=== PATIENT | female | born 1955 | race Caucasian/White ===

== ENCOUNTER → 2019-10-20 | Outpatient (CLI) | payer MEDICARE ==
[2019-10-20 10:12] LABS: Basophils # (auto) 0.1 10 ^3/uL (0-0.2); Basophils % (auto) 1.4 % (0.0-2.0); Eosinophils # (auto) 0.2 10 ^3/uL (0-0.8); Eosinophils % (auto) 2.8 % (0.0-7.0); Hematocrit 41.2 % (36.0-46.0); Hemoglobin 13.5 g/dL (12.2-16.2); Lymphocytes # (auto) 2.1 10 ^3/uL (0.4-5.4); Lymphocytes % (auto) 36.3 % (10.0-50.0); Mean Corpuscular Hemoglobin 29.8 pg (28.0-32.0); Mean Corpuscular Hgb Conc. 32.9 g/dL (32.0-36.0); Mean Corpuscular Volume 90.6 fL (80.0-100.0); Monocytes # (auto) 0.5 10 ^3/uL (0-1.3); Neutrophils % (auto) 51.5 % (37.0-80.0); Nucleated Red Blood Cells % 0.1 %; Platelet Count (auto) 305 10^3/uL (140-450); Red Blood Cells 4.55 10^6/uL (4.0-5.20); Red Cell Distribution Width 13.5 % (11.8-14.3); White Blood Cell 5.9 10^3/uL (4.4-10.8)
[2019-10-20 10:40] LABS: Free T4 (Free Thyroxine) 0.88 ng/dL (0.89-1.76)
[2019-10-20 10:42] LABS: Folate (Folic Acid) 15.35 ng/mL (5.38-24)
[2019-10-20 14:20] LABS: Albumin 3.8 g/dL (3.4-5.0); Calcium 9.3 mg/dL (8.5-10.1); Potassium 3.9 mmol/L (3.5-5.1)
[2019-10-20 14:24] LABS: BUN/Creatinine Ratio 18.9; Bilirubin, Total 0.5 mg/dL (0.2-1.0); Phosphorus 3.2 mg/dL (2.5-4.90); Total Protein 7.2 g/dL (6.4-8.2)
[2019-10-21 16:03] LABS: Urine Bacteria FEW /hpf (None Seen); Urine Blood Negative /uL (Negative); Urine Mucus FEW (None Seen); Urine Specific Gravity 1.012 (1.001-1.035); Urine WBC 1 /hpf (0 - 5)
== END | disposition home or self-care (01) ==
LOC: LAB 09:34
PROVIDERS: ATTEND Internal Medicine
DX: E03.9 Hypothyroidism, unspecified (principal); E11.22 Type 2 diabetes mellitus with diabetic chronic kidney disease; N18.9 Chronic kidney disease, unspecified; M85.80 Other specified disorders of bone density and structure, unspecified site
CPT/HCPCS: 36415; 80053; 80061; 80069; 81001; 82043; 82306; 82607; 82746; 83036; 84439; 84443; 85025; 86200

== ENCOUNTER 2024-05-18 19:27 | Emergency (ER) | payer MEDICARE, OTHER ==
[~2024-05-18] VITALS: Ht 167.6 cm; Wt 79.5 kg
[2024-05-18 19:32] VITALS: BP 114/72; RESP 16; O2SAT 96
[2024-05-18 19:44] VITALS: PULSE 60
--- NOTE | 2024-05-18 20:29 | ED.PDOC ---
History of Present Illness HPI Comments 69 y/o F, with a Hx of angina, HLD, and hypothyroidism, is BIBA for c/o chest pain, today. Per EMS report, patient endorses on sudden and unprovoked onset of non-radiating, sternal chest discomfort, this evening, at around 1800. Prior to EMS arrival on scene, patient was commented to have taken 2x doses of her prescription NTG at 0645 and 0700, with pain subsiding, immediately, afterwards. At time of assessment, patient states on having similar pain in the past with her Hx of angina and last episode taking place "awhile ago." She refutes any recent injuries, strenuous activities, or stressors along with reporting any additional relevant or pertinent information. Patient denies having any current pain, shortness of breath, dizziness, nausea, vomiting, or other associated symptoms or modifiers at this time. Chief Complaint: Chest Pain Time Seen by MD: 20:00 Reviewed Notes: Nurses Notes, Medications, Allergies Allergies: Coded Allergies: NO KNOWN ALLERGIES (Unverified , 05/18/24) Information Source: Patient, Emergency Med Personnel Mode of Arrival: EMS Severity: Moderate Timing: Hours Duration: Since onset Prehospital treatment: 12 Lead EKG, Solution Maker Past Medical History PAST MEDICAL HISTORY: Angina, High Lipids, Thyroid (hypothyroidism ) Past Medical History (Other): TNA Surgical History: BTL, Cholecystectomy, Hysterectomy Surgical History (Other): right shoulder and bilateral knee and carpal tunnel Sx All Other Systems: Reviewed and Negative (negative unless otherwise stated above or in HPI) Physical Exam General Appearance: Mild Distress, Normal HEENT: Normal ENT Inspection, Pharynx Normal, TMs Normal Neck: Full Range of Motion, Non-Tender, Normal, Normal Inspection Respiratory: Chest Non-Tender, Lungs Clear, No Accessory Muscle Use, No Resp iratory Distress, Normal Breath Sounds Cardiovascular: No Edema, No JVD, No Murmur, No Gallop, Normal Peripheral Pulses, Regular Rate/Rhythm Breast Exam: Deferred Gastrointestinal: No Organomegaly, Non Tender, No Pulsatile Mass, Normal Bowel Sounds, Soft Genitalia: Deferred Pelvic: Deferred Rectal: Deferred Extremities: No calf tenderness, Normal capillary refill, Normal inspection, Normal range of motion, Non-tender, No pedal edema Musculoskeletal : Apperance: Normal Neurologic: Alert, web engineer II-XII nml as Tested, No Motor Deficits, Normal Affect, Normal Mood, No Sensory Deficits Cerebellar Function: Normal Reflexes: Normal Skin: Dry, Normal Color, Warm Lymphatic: No Adenopathy Was a procedure done? Was a procedure done?: No Differential Dx Considerations may include: Angina, anxiety, costochondritis, pericarditis, gastritis, gastroenteritis X-Ray, Labs, Meds, VS Vital Signs Date Time Temp Pulse Resp B/P (MAP) Pulse Ox O2 Delivery O2 Flow Rate FiO2 05/18/24 19:44 60 05/18/24 19:32 98.4 67 16 114/72 (86) 96 The patient eloped without notification. Time of 1ST Reevaluation: 20:30 Reevaluation 1ST: Unchanged Patient Education/Counseling: Diagnosis, Treatment Family Education/Counseling: No Family Present Departure 1 Departure Time of Disposition: 22:00 Impression: Primary Impression: Chest pain Qualified Codes: R07.9 - Chest pain, unspecified Disposition: HOME / SELF CARE / HOMELESS Condition: Guarded Discharged With: Self Critical Care Note Critical Care Time?: No Stability Stability form required: No Heart Score Heart Score: Heart Score Response (Comments) Value History Slightly Suspicious 0 EKG Normal 0 Age >65 2 Risk Factors >3 or Hx ASHD 2 Troponin N/A 0 Total 4 I personally scribed for CAT DRISCOLL MD ([email or web address]) on 05/18/24 at 20:28. Electronically submitted by Chriss Kwan ([email or web address]). CAT DRISCOLL MD May 18, 2024 20:28
--- NOTE | 2024-05-19 06:13 | ECG ---
[facility] Test Date: 2024-05-18 Test Time: 19:44:11 Pat Name: GOMEZ JARRETT Department: ED Room: Gender: F Statistician Theoretical: JOEY : 1955 Requested By: CAT DRISCOLL Order Number: [id number] Reading MD: Kirt Miller Measurements Intervals [place] Rate: 60 P: 17 ND: 152 QRS: 56 QRSD: 98 T: 50 QT: 439 QTc: 439 Interpretive Statements Sinus rhythm S1,S2,S3 pattern Borderline T abnormalities, anterior leads Electronically Signed On 05-19-2024 21:13:01 PST by Kirt Miller Please click the below link to view image of tracing.
== END 2024-05-18 22:25 | disposition home or self-care (01) ==
LOC: ER 19:27 → EDBD 19:27 → ER 22:25
DX: R07.89 Other chest pain (principal); E78.5 Hyperlipidemia, unspecified; E03.9 Hypothyroidism, unspecified; Z90.49 Acquired absence of other specified parts of digestive tract; Z90.89 Acquired absence of other organs; Z90.710 Acquired absence of both cervix and uterus; Z98.890 Other specified postprocedural states
CPT/HCPCS: 93005

== ENCOUNTER 2024-12-26 10:22 | Emergency (ER) | payer OTHER ==
[~2024-12-26] VITALS: Ht 177.8 cm; Wt 77.2 kg
[2024-12-26 10:22] VITALS: BP 129/84; TEMP 98.4
--- NOTE | 2024-12-26 10:30 | ED.PDOC ---
HPI Comments This is a 69 year old female MARIANNA presenting to the ED with chief complain of chest pain. Patient reports that she had started to experience 6/10 sudden center chest pain while driving an hour ago, so she went back home and took a dose of Nitroglycerin and Aspirin with relief in her chest pain now at a 4/10. Patient states that she was previously diagnosed with angina, having similar pain in the past. 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 Patient reports that she feels much better at this time. Patient denies any SOB, dizziness, N/V, fever, chills, or abdominal pain. Chief Complaint: Chest Pain Time Seen by MD: 10:27 Reviewed Notes: Nurses Notes, Mail Censor Notes, Medications, Allergies Allergies: Coded Allergies: NO KNOWN ALLERGIES (Unverified , 05/18/24) Information Source: Patient, Emergency Med Personnel Mode of Arrival: EMS Severity: Moderate Timing: Hours Duration: Since onset Prehospital treatment: ASA, NTG Location: Substernal Radiation: No Radiation Quality: Sharp Onset: At Rest Cardiac Risk Factors: Hyperlipidemia, HTN PE Risk Factors: None History of: Similar pain in past, Angina Past Medical History PAST MEDICAL HISTORY: Angina, High Lipids, HTN, Thyroid Surgical History: BTL, Cholecystectomy, Hysterectomy DOUGHNUT DOUGH 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 History: Denies all DOUGHNUT DOUGH MIXER Hx Family History Family History: Reviewed,noncontributory to illness Social History Smoker: Non-Smoker Alcohol: Denies ETOH Use Drugs: Denies Drug Use Lives In: Home Constitutional: denies: chills, diaphoresis, fatigue, fever, malaise, sweats, weakness, others EENTM: denies: blurred vision, double vision, ear bleeding, ear discharge, ear drainage, ear pain, ear ringing, eye pain, eye redness, hearing loss, mouth pain, mouth swelling, nasal discharge, nose bleeding, nose congestion, nose pain, photophobia, tearing, throat pain, throat swelling, voice changes, others Respiratory: denies: cough, hemoptysis, orthopnea, SOB at rest, shortness of breath, SOB with excertion, stridor, wheezing, others Cardiovascular: reports: chest pain; denies: dizzy spells, diaphoresis, Dyspnea on exertion, edema, irregular heart beat, left arm pain, lightheadedness, palpitations, PND, syncope, others Gastrointestinal: denies: abdomen distended, abdominal pain, blood streaked bowels, constipated, diarrhea, dysphagia, difficulty swallowing, hematemesis, melena, nausea, poor appetite, poor fluid intake, rectal bleeding, rectal pain, vomiting, others Genitourinary: denies: abnormal vagina bleeding, burning, dyspareunia, dysuria, flank pain, frequency, hematuria, incontinence, pain, , vagina discharge, urgency, others Neurological: denies: dizziness, fainting, headache, left sided numbness, left sided weakness, numbness, paresthesia, pre-existing deficit, right sided numb ness, right sided weakness, seizure, speech problems, tingling, tremors, weakness, others Musculoskeletal: denies: back pain, gout, joint pain, joint swelling, muscle pain, muscle stiffness, neck pain, others Integumetry: denies: bruises, change in color, change in hair/nails, dryness, laceration, lesions, lumps, rash, wounds, others Allergic/Immunocompromised: denies: Difficulty Healing, Frequent Infections, Hives, Itching, others Hematologic/Lymphatic: denies: anemia, blood clots, easy bleeding, easy bruising, swollen glands, others Endocrine: denies: excessive hunger, excessive sweating, excessive thirst, excessive urination, flushing, intolerance to cold, intolerance to heat, unexplained weight gain, unexplained weight loss, others Psychiatric: denies: anxiety, bipolar disorder, depression, hopeless, panic disorder, schizophrenia, sleepless, suicidal, others All Other Systems: Reviewed and Negative Physical Exam General Appearance: Moderate Distress, Normal HEENT: Normal ENT Inspection, Pharynx Normal, TMs Normal Neck: Full Range of Motion, Non-Tender, Normal, Normal Inspection Respiratory: Chest Non-Tender, Lungs Clear, No Accessory Muscle Use, No Respiratory Distress, Normal Breath Sounds Cardiovascular: Bradycardia, No Edema, No JVD, No Murmur, No Gallop, Normal Peripheral Pulses Breast Exam: Deferred Gastrointestinal: No Organomegaly, Non Tender, No Pulsatile Mass, Normal Bowel Sounds, Soft Genitalia: Deferred Pelvic: Deferred Rectal: Deferred Extremities: No calf tenderness, Normal capillary refill, Normal inspection, Normal range of motion, Non-tender, No pedal edema Musculoskeletal : Apperance: Normal Neurologic: Alert, head sampler II-XII nml as Tested, No Motor Deficits, Normal Affect, Normal Mood, No Sensory Deficits Cerebellar Function: NOT DONE Reflexes: NOT DONE Skin: Dry, Normal Color, Warm Peripheral Pulses: 3+ Radial (R), 3+ Radial (L) Lymphatic: No Adenopathy EKG EKG : Pulse Rate (adult): 57 [place]: Normal Cardiac Rhythm: NSR Was a procedure done? Was a procedure done?: No CP Differential Dx Differential Diagnosis: A-fib, A-Flutter, Angina, Anxiety / Panic Attack, Atrial Dysrhythmia, Electrolyte Disorder X-Ray, Labs, Meds, VS Vital Signs Date Time Temp Pulse Resp B/P (MAP) Pulse Ox O2 Delivery O2 Flow Rate FiO2 12/26/24 11:37 45 12/26/24 10:30 57 12/26/24 10:22 98.4 62 18 129/84 96 98.4 12/26/24 10:22 57 Lab Test 12/26/24 11:41 12/26/24 10:42 Range/Units Troponin I High Sensitivity 3 L 4 </=34 ng/L White Blood Count 5.0 4.4-10.8 10^3/uL Red Blood Count 4.61 4.0-5.20 10^6/uL Hemoglobin 14.1 12.2-16.2 g/dL Hematocrit 42.2 36.0-46.0 % Mean Corpuscular Volume 91.7 80.0-100.0 fL Mean Corpuscular Hemoglobin 30.7 28.0-32.0 pg Mean Corpuscular Hemoglobin Concent 33.5 32.0-36.0 g/dL Red Cell Distribution Width 13.5 11.8-14.3 % Platelet Count 261 140-450 10^3/uL Mean Platelet Volume 7.8 6.9-10.8 fL Neutrophils (%) (Auto) 51.2 37.0-80.0 % Lymphocytes (%) (Auto) 36.3 10.0-50.0 % Monocytes (%) (Auto) 9.2 0.0-12.0 % Eosinophils (%) (Auto) 2.2 0.0-7.0 % Basophils (%) (Auto) 1.1 0.0-2.0 % Neutrophils # (Auto) 2.5 1.6-8.6 10 ^3/uL Lymphocytes # (Auto) 1.8 0.4-5.4 10 ^3/uL Monocytes # (Auto) 0.5 0-1.3 10 ^3/uL Eosinophils # (Auto) 0.1 0-0.8 10 ^3/uL Basophils # (Auto) 0.1 0-0.2 10 ^3/uL Nucleated Red Blood Cells 0.1 % Sodium Level 144 136-145 mmol/L Potassium Level 3.9 3.5-5.1 mmol/L Chloride Level 108 H 98-107 mmol/L Carbon Dioxide Level 27 20-31 mmol/L Anion Gap 9 5-15 Blood Urea Nitrogen 13 9-23 mg/dL Creatinine 0.92 0.550-1.02 mg/dL Glomerular Filtration Rate Calc 67 >90 mL/min BUN/Creatinine Ratio 14.1 10.0-20.0 Serum Glucose 105 74-106 mg/dL Calcium Level 9.9 8.7-10.4 mg/dL Patient alert. Came in because of chest pain. History of angina. Vitals stable. EKG does show bradycardia. Was given aspirin. Was given nitro. Cardiac marker within normal limits. Risk factors for coronary artery disease. Explained to the patient. Continue monitoring. Time of 1ST Reevaluation: 11:26 Reevaluation 1ST: Unchanged Patient Education/Counseling: Diagnosis, Treatment Family Education/Counseling: No Family Present SEPSIS Sepsis Screen Physician Orders Electrocardigram (12/26/24 10:31) Electrocardigram (12/26/24 11:31) Electrocardigram (12/26/24 13:31) Chest Portable (12/26/24 10:30) Urinalysis (12/26/24 10:30) Troponin-I Hs (12/26/24 13:30) Vital Signs Date Time Temp Pulse Resp B/P (MAP) Pulse Ox O2 Delivery O2 Flow Rate FiO2 12/26/24 11:37 45 12/26/24 10:30 57 12/26/24 10:22 98.4 62 18 129/84 96 98.4 12/26/24 10:22 57 Laboratory Tests Test 12/26/24 10:42 White Blood Count 5.0 10^3/uL (4.4-10.8) Departure 1 Departure Time of Disposition: 12:14 Impression: Primary Impression: Symptomatic bradycardia Additional Impression: Chest pain of unknown etiology Disposition: ADMITTED INPATIENT Admit to: Med Surg Condition: Guarded Critical Care Note Critical Care Time?: Yes (90 min-critical care time only) Stability Stability form required: No Heart Score Heart Score: Heart Score Response (Comments) Value History Highly Suspicious 2 EKG Normal 0 Age >65 2 Risk Factors >3 or Hx ASHD 2 Troponin Normal limit 0 Total 6 I personally scribed for JONNATHAN BRAMBILA MD ([email or web address]) on 12/26/24 at 10:30. Electronically submitted by Dale Naranjo ([email or web address]). I personally scribed for JONNATHAN BRAMBILA MD ([email or web address]) on 12/26/24 at 11:42. Electronically submitted by Dale Naranjo ([email or web address]). JONNATHAN BRAMBILA MD Dec 26, 2024 10:30
[2024-12-26 11:00] LABS: Hematocrit 42.2 % (36.0-46.0); Hemoglobin 14.1 g/dL (12.2-16.2); Mean Corpuscular Hemoglobin 30.7 pg (28.0-32.0); Mean Corpuscular Volume 91.7 fL (80.0-100.0); Nucleated Red Blood Cells % 0.1 %
[2024-12-26 11:07] LABS: Potassium 3.9 mmol/L (3.5-5.1); Sodium 144 mmol/L (136-145)
[2024-12-26 11:08] LABS: Anion Gap 9 (5-15); Calcium 9.9 mg/dL (8.7-10.4); Carbon Dioxide 27 mmol/L (20-31)
[2024-12-26 11:09] LABS: Chloride 108 mmol/L (98-107)
[2024-12-26 11:13] LABS: BUN/Creatinine Ratio 14.1 (10.0-20.0); Blood Urea Nitrogen 13 mg/dL (9-23); Glucose 105 mg/dL (74-106)
--- NOTE | 2024-12-26 11:18 | DVH ---
XY CHEST PORTABLE, HISTORY: sob COMPARISON: XR CHEST 2 VIEW on DOS: 08/12/24, CR CHEST 2 VIEW on DOS: 05/22/24, CR CHEST 2 VIEW on DOS: 12/28/23 XR CHEST 2 VIEW on DOS: 08/12/24, CR CHEST 2 VIEW on DOS: 05/22/24, CR CHEST 2 VIEW on DOS: 12/28/23 TECHNICAL DATA: 1 view of the chest was obtained. FINDINGS: Lines and tubes: None Cardiomediastinal silhouette: normal Pulmonary vasculature: normal Lung expansion: normal Lung airspace: normal Lung interstitium: normal Pleura: normal Pneumothorax: no Bones: Partial shoulder arthroplasty is seen on the right. Other: no IMPRESSION: No acute intrathoracic abnormality.
[2024-12-26 12:09] VITALS: PULSE 47; RESP 17; O2SAT 95
[2024-12-26] MEDS: NITROGLYCERIN 0.4 MG SL TAB SL ONE (12:22)
--- NOTE | 2024-12-26 14:31 | DVHINCON2 ---
Date Seen: Dec 26, 2024 Referring Physician Emergency room physician. Reason for Consultation Bradycardia. History of Present Illness 69-year-old female with a known history of hypertension, dyslipidemia, previous history of angina who presented to the hospital with the chest pain. Patient's chest pain was substernal 6/10, after aspirin and nitroglycerin decreased to 4/10. Patient has had similar kind of symptoms in the past as well. Past Medical History Hypertension Dyslipidemia Angina Past Surgical History Cholecystectomy Bilateral tubal ligation Total hysterectomy Allergies: Coded Allergies: NO KNOWN ALLERGIES (Unverified , 05/18/24) Vital Signs Vital Signs Date Time Temp Pulse Resp B/P (MAP) Pulse Ox O2 Delivery O2 Flow Rate FiO2 12/26/24 12:09 47 17 95 Room Air* 0 21 12/26/24 10:22 98.4 129/84 98.4 Labs/Diagnostic Data Labs Test 12/26/24 11:41 12/26/24 10:42 Range/Units Troponin I High Sensitivity 3 L </=34 ng/L White Blood Count 5.0 4.4-10.8 10^3/uL Red Blood Count 4.61 4.0-5.20 10^6/uL Hemoglobin 14.1 12.2-16.2 g/dL Hematocrit 42.2 36.0-46.0 % Mean Corpuscular Volume 91.7 80.0-100.0 fL Mean Corpuscular Hemoglobin 30.7 28.0-32.0 pg Mean Corpuscular Hemoglobin Concent 33.5 32.0-36.0 g/dL Red Cell Distribution Width 13.5 11.8-14.3 % Platelet Count 261 140-450 10^3/uL Mean Platelet Volume 7.8 6.9-10.8 fL Neutrophils (%) (Auto) 51.2 37.0-80.0 % Lymphocytes (%) (Auto) 36.3 10.0-50.0 % Monocytes (%) (Auto) 9.2 0.0-12.0 % Eosinophils (%) (Auto) 2.2 0.0-7.0 % Basophils (%) (Auto) 1.1 0.0-2.0 % Neutrophils # (Auto) 2.5 1.6-8.6 10 ^3/uL Lymphocytes # (Auto) 1.8 0.4-5.4 10 ^3/uL Monocytes # (Auto) 0.5 0-1.3 10 ^3/uL Eosinophils # (Auto) 0.1 0-0.8 10 ^3/uL Basophils # (Auto) 0.1 0-0.2 10 ^3/uL Nucleated Red Blood Cells 0.1 % Sodium Level 144 136-145 mmol/L Potassium Level 3.9 3.5-5.1 mmol/L Chloride Level 108 H 98-107 mmol/L Carbon Dioxide Level 27 20-31 mmol/L Anion Gap 9 5-15 Blood Urea Nitrogen 13 9-23 mg/dL Creatinine 0.92 0.550-1.02 mg/dL Glomerular Filtration Rate Calc 67 >90 mL/min BUN/Creatinine Ratio 14.1 10.0-20.0 Serum Glucose 105 74-106 mg/dL Calcium Level 9.9 8.7-10.4 mg/dL Assessment 69-year-old female with a known history of hypertension, dyslipidemia, history of angina who initially presented to the hospital with the chest pain, found to have 1. Chest pain rule out acute [place] 2. Bradycardia 3. Hypertension 4. Dyslipidemia -patient was recommended to have tele admission, 2D echo cardiology consultation. Patient's left against medical advice before completion of workup and treatment. -patient was encouraged to come back, we will arrange outpatient follow up with the Cardiology. Plan discussed with: Other (ER physician) Date of Service: Dec 26, 2024 Billing Provider: TAB LOPEZ MD Common Visit Codes: NOT BILLABLE TAB LOPEZ MD Dec 26, 2024 14:31
--- NOTE | 2024-12-26 17:59 | ECG ---
[facility] Test Date: 2024-12-26 Test Time: 11:37:45 Pat Name: GOMEZ JARRETT Department: ED Room: Gender: F Overseamer: zeinab : 1955 Requested By: JONNATHAN BRAMBILA Order Number: [id number] Reading MD: Kirt Miller Measurements Intervals [place] Rate: 45 P: 38 [place]: 152 QRS: -24 QRSD: 103 T: 71 QT: 468 QTc: 405 Interpretive Statements Sinus bradycardia Borderline left axis deviation Nonspecific T abnrm, anterolateral leads Electronically Signed On 12-31-2024 9:25:52 PDT by Kirt Miller Please click the below link to view image of tracing.
--- NOTE | 2024-12-29 10:42 | ECG ---
[facility] Test Date: 2024-12-26 Test Time: 10:12:11 Pat Name: GOMEZ JARRETT Department: Room: Gender: F Technology Methodology Consultant: FERNY : 1955 Requested By: JONNATHAN BRAMBILA Order Number: [id number] Reading MD: Kirt Miller Measurements Intervals [place] Rate: 57 P: 15 VT: 141 QRS: -26 QRSD: 109 T: 75 QT: 435 QTc: 424 Interpretive Statements Sinus rhythm Borderline left axis deviation Abnormal R-wave progression, late transition Nonspecific T abnrm, anterolateral leads Electronically Signed On 12-31-2024 9:25:46 PDT by Kirt Miller Please click the below link to view image of tracing.
== END 2024-12-26 12:46 | disposition left against medical advice (07) ==
LOC: EDUNIT# 10:22 → ER 10:22 → EDBD 10:22 → ER 12:46
DX: R00.1 Bradycardia, unspecified (principal); R07.89 Other chest pain; E78.5 Hyperlipidemia, unspecified; I10 Essential (primary) hypertension; Z90.710 Acquired absence of both cervix and uterus; Z88.6 Allergy status to analgesic agent; Z90.49 Acquired absence of other specified parts of digestive tract
CPT/HCPCS: 36415; 71045; 80048; 84484; 85025; 93005; 99291; 99292